=== PATIENT | female | born 1970 | race Caucasian/White ===

== ENCOUNTER 2018-11-20 12:08 | Emergency (ER) | payer OTHER ==
[~2018-11-20] VITALS: Ht 165.1 cm; Wt 61.2 kg
[~2018-11-20 12:08] MED LIST: AXERT6.25 MG PO; SYNTHROID50 MCG PO
[2018-11-20] MEDS ORDERED: WELLBUTRIN XL300 MG (12:51)
[2018-11-20] MEDS ORDERED: WELLBUTRIN XL150 M1 (12:51)
[2018-11-20] MEDS ORDERED: CLONAZEPAM0.25 MG (12:52)
[2018-11-20] MEDS ORDERED: ZIAC 2.5-6.251 EACH (12:52)
[2018-11-20] MEDS ORDERED: LEVSIN/SL0.125 MG SL (18:54)
[2018-11-20] MEDS ORDERED: METRONIDAZOLE500 MG PO (18:54)
[2018-11-20] MEDS ORDERED: CIPRO250 MG PO (18:54)
[2018-11-20] MEDS ORDERED: PEPCID AC20 MG PO (18:54)
[2018-11-20] MEDS ORDERED: LOPERAMIDE2 MG PO (18:54)
[2018-11-20] MEDS ORDERED: INTESTINEX680 M1 PO (18:54)
== END 2018-11-20 20:00 ==
LOC: ER 12:08
DX: K52.89 Other specified noninfective gastroenteritis and colitis (principal); R30.0 Dysuria

== ENCOUNTER 2019-05-16 19:20 | Inpatient (IN) | payer OTHER ==
[~2019-05-16] VITALS: Ht 165.1 cm; Wt 63.5 kg
[~2019-05-16 19:20] MED LIST changes: +CIPRO250 MG PO; +CLONAZEPAM0.25 MG; +INTESTINEX680 M1 PO; +LEVSIN/SL0.125 MG SL; +LOPERAMIDE2 MG PO; +METRONIDAZOLE500 MG PO; +PEPCID AC20 MG PO; +WELLBUTRIN XL150 M1; +WELLBUTRIN XL300 MG; +ZIAC 2.5-6.251 EACH
--- NOTE | 2019-05-16 19:28 | NUR ---
SE RECIBE PACIENTE ALERTA Y ORIENTADA X3 EN UNIADAD DE AMBULANCIA Y REFIERE VOMITOS Y DOLOR DE SHANTANU DESDE ANOCHE.
--- NOTE | 2019-05-16 19:29 | NUR ---
BAJO MEDIDAS ASEPTICAS AL PACIENTE SE LE MAYDA MUESTRAS DE LYNDSEY PARA REALIZAR LABORATORIOS DEL GALILEO HARVEY.
== END 2019-05-28 12:36 | disposition home or self-care (01) | DRG 103 ==
LOC: ER 19:20 → MEDI 21:21
PROVIDERS: ADMIT Internal Medicine
PROC: BW28ZZZ Computerized Tomography (CT Scan) of Head (ICD-10-PCS; principal; 2019-05-16)
PROC: B246ZZZ Ultrasonography of Right and Left Heart (ICD-10-PCS; 2019-05-16)
PROC: B345ZZZ Ultrasonography of Bilateral Common Carotid Arteries (ICD-10-PCS; 2019-05-16)
PROC: 4A12X4Z Monitoring of Cardiac Electrical Activity, External Approach (ICD-10-PCS; 2019-05-16)
PROC: B030ZZZ Magnetic Resonance Imaging (MRI) of Brain (ICD-10-PCS; 2019-05-17)
PROC: BW40ZZZ Ultrasonography of Abdomen (ICD-10-PCS; 2019-05-20)
PROC: 09JK8ZZ Inspection of Nasal Mucosa and Soft Tissue, Via Natural or Artificial Opening Endoscopic (ICD-10-PCS; 2019-05-24)
DX: G43.011 Migraine without aura, intractable, with status migrainosus (principal); R55 Syncope and collapse; F41.8 Other specified anxiety disorders; E03.8 Other specified hypothyroidism; I10 Essential (primary) hypertension; R30.0 Dysuria; R94.6 Abnormal results of thyroid function studies; J01.80 Other acute sinusitis
CPT/HCPCS: 70551